=== PATIENT | female | born 1965 | race Two or more races ===

== ENCOUNTER 2023-10-16 09:29 | Emergency (ER) | payer OTHER ==
[~2023-10-16] VITALS: Ht 167.6 cm; Wt 100.0 kg
[2023-10-16 09:45] VITALS: TEMP 98.6
[2023-10-16] MEDS ORDERED: ASPI-1450 PO (09:48)
[2023-10-16] MEDS ORDERED: SERT-162 PO (09:48)
[2023-10-16] MEDS ORDERED: LAMO25TA36 PO (09:48)
[2023-10-16] MEDS ORDERED: LEVE500T20 PO (09:48)
[2023-10-16] MEDS ORDERED: AMLO-257 PO (09:48)
[2023-10-16] MEDS ORDERED: FLUT1BLS10 IH (09:48)
[2023-10-16] MEDS ORDERED: MECO10005 PO (09:48)
[2023-10-16 09:51] LABS: GLUCOMETER DEV NAME(LOC) ER.6; GLUCOSE,POINT OF CARE 102 MG/DL (70-110)
[2023-10-16 10:17] LABS: ANION GAP 7 mmol/L (8-16); CALCIUM, TOTAL 8.4 mg/dL (8.8-10.5); CARBON DIOXIDE 28 mmol/L (22-29); CHLORIDE 106 mmol/L (98-107); CREATININE 0.95 mg/dL (0.60-1.30); GLOMERULAR FILTR. RATE CALC > 60 mL/min (>60); GLUCOSE,RANDOM 99 mg/dL (70-110); POTASSIUM 3.5 mmol/L (3.5-5.1); SODIUM SERUM 141 mmol/L (136-145); UREA NITROGEN, BLOOD 18 mg/dL (7-18)
[2023-10-16] MEDS ORDERED: LORazepam 2 MG/ML VIAL IVP ONE (11:30)
[2023-10-16 11:46] LABS: COVID AG,FIA SOURCE NASAL SWAB
[2023-10-16 12:02] LABS: SARS-COV2 (COVID) ANTIGEN,FIA Negative (Negative)
[2023-10-16 12:32] VITALS: BP 113/62; PULSE 67; RESP 20
[2023-10-16] MEDS ORDERED: LevETIRAcetam 1,000 MG in DEXTROSE 5%-WATER 100 ML IV ONE (13:00)
== END 2023-10-16 14:33 | disposition short-term general hospital (02) ==
LOC: EMS 09:38
DX: G40.909 Epilepsy, unspecified, not intractable, without status epilepticus (principal); I10 Essential (primary) hypertension; Z20.822 Contact with and (suspected) exposure to COVID-19
CPT/HCPCS: 99291; 96365; 70450; 96375; 87426; 80048; 82962; 36415; 71045; J0712; J7060